=== PATIENT | male | born 1945 | race Asian ===

== ENCOUNTER 2017-03-23 03:48 | Emergency (ER) | payer OTHER ==
[~2017-03-23] VITALS: Ht 167.6 cm; Wt 91.8 kg
[2017-03-23 03:53] VITALS: Ht 167.6 cm; Wt 91.8 kg
--- NOTE | 2017-03-23 04:10 | EMERGENCY ROOM VISIT NOTE ---
History Report prepared by Maurice: Efren Escobar Under the Supervision of: Dr. Dina Brewster M.D. First contact with patient: 03:59 Chief Complaint: URINARY SYMPTOMS Stated Complaint: URINE RETENTION History of Present Illness The patient is a 71 year old male who presents to the Emergency Room with complaints of constant difficulty passing urine that began yesterday. The patient states he was working with his daughter in [employer]. He reports he was in the ED for urinary retention three weeks ago. The patient notes he had a catheter in place. He states it stopped draining the other day, so he tried to irrigate it. The patient reports he started having blood in his bag. He notes he removed the catheter yesterday by himself. The patient states he was able to pass urine twice, but it was a very weak stream. He reports he is flying back to [facility] later today. The patient notes he took two doses of 500mg of Cipro and 875mg of Augmentin x 2. He denies fevers and loss of bowel control. Source of History: patient Onset: yesterday Position: other (global) Quality: other (difficulty passing urine) Timing: constant Associated Symptoms: No fevers Note: Associated symptoms: blood in urine and week urine output Denies: loss of bowel control Review of Systems See HPI for pertinent positives & negatives. A total of 10 systems reviewed and were otherwise negative. Past Medical & Surgical Medical Problems: (1) Heart disease (2) HTN (hypertension) Family History Diabetes mellitus Gallbladder disease Heart disease Hypertension Kidney disease Kidney stones Social History Smoking Status: Never Smoker Alcohol Use: occasionally Marital Status: Housing Status: lives with family Occupation Status: employed Allergies Coded Allergies: No Known Allergies (Unverified , 03/23/17) Physical Exam Vital Signs Date Time Temp Pulse Resp B/P (MAP) Pulse Ox O2 Delivery O2 Flow Rate FiO2 03/23/17 04:47 36.5 90 18 145/78 95 03/23/17 03:53 36.4 102 18 171/94 94 Room Air Physical Exam Vital signs reviewed. General: Uncomfortable-appearing 71 year old male, in no significant distress. Pacing in the room. HEENT: No scleral icterus, PERRLA, neck supple. Atraumatic. Cardiovascular: Regular rate and rhythm, no extra sounds. Pulmonary: Clear to auscultation bilaterally, normal work of breathing. Abdomen: Soft, nontender, positive bowel sounds. Fullness to the suprapubic region. Musculoskeletal: Atraumatic, no peripheral edema. No CVA tenderness. Neurologic: Patient awake alert and oriented x 3 Skin: Warm, dry, no rash Medical Decision & Procedures Laboratory Results Test 03/23/17 04:30 Urine Color YELLOW Urine Appearance CLOUDY (CLEAR) Urine pH 7.0 (4.5-7.5) Urine Specific [place] 1.014 (1.000-1.030) Urine Protein NEG (NEG) Urine Glucose (UA) NEG (NEG) Urine Ketones NEG (NEG) Urine Occult Blood 3+ (NEG) Urine Nitrite NEG (NEG) Urine Bilirubin NEG (NEG) Urine Urobilinogen NEG (NEG) Urine Leukocyte Esterase SMALL (NEG) Urine WBC (Auto) 10-30 /hpf (0-5) Urine RBC (Auto) >30 /hpf (0-4) Urine Hyaline Casts (Auto) 1-5 /lpf (0-5) Urine Epithelial Cells (Auto) >30 /lpf (0-5) Urine Bacteria (Auto) NEG (NEG) Urine Yeast (Auto) (NONE PRSENT) Laboratory results per my review. ED Course 0401: Past medical records reviewed. The patient was evaluated in room A10. A complete history and physical examination was performed. 0415: Ordered Lidocaine HCl 10ml EXT - REFUSED 0441: Upon reevaluation, the patient appeared to have improvement of his symptoms. I discussed findings with him. The patient verbalized agreement of the treatment plan. He was discharged home. Medical Decision The patient is a 71 year old male who presents to the ED with complaints of decrease urinary output. Differentials include BPH, prostatitis, UTI, obstruction mass. This patient was evaluated and appeared to be in some discomfort. IV access was obtained and laboratory work was drawn. A Crow catheter was placed for approximately 1300 mL of urine. The patient had significant relief of his discomfort. A leg bag was applied. The patient has already initiated Cipro and Augmentin. He was advised to discontinue the Augmentin and continue Cipro. Patient will follow-up with his urologist upon return home. He will return to the ER for worsening of symptoms or any medical concerns. Impression Primary Impression: Urinary retention Scribe Attestation The scribe's documentation has been prepared under my direction and personally reviewed by me in its entirety. I confirm that the note above accurately reflects all work, treatment, procedures, and medical decision making performed by me. Departure Information Dispostion Home / Self-Care Referrals No Doctor, Assigned (PCP) Forms HOME CARE DOCUMENTATION FORM, IMPORTANT VISIT INFORMATION Patient Instructions ED Catheter Care [facility] Additional Instructions Diagnosis: Urinary retention Please leave catheter in place for 7 days. Continue cipro 500 mg twice daily for 7 days. Follow up with your urologist upon return home. Return to the ED for worsening of symptoms or any medical concerns.
[2017-03-23] MEDS ORDERED: LIDOCAINE HCL 2% JELLY 30 ML TUBE EXT ONE (04:15)
[2017-03-23 04:47] VITALS: BP 145/78; PULSE 90; TEMP 36.5; O2SAT 95
[2017-03-23 04:53] LABS: URINE APPEARANCE CLOUDY (CLEAR); URINE BILIRUBIN NEG (NEG); URINE COLOR YELLOW; URINE EPITHELIAL CELL AUTO >30 /lpf (0-5); URINE NITRITE NEG (NEG); URINE SPECIFIC GRAVITY 1.014 (1.000-1.030); UROBILINOGEN NEG (NEG); ZZURINE CULT IF INDIC CATH YES
[2017-03-23 04:56] LABS: MANUAL MICROSCOPIC REQUIRED? NO; REVIEW REQ? YES
--- NOTE | 2017-03-25 14:59 | Pharmacy Progress Note ---
ED Pharmacist Culture FollowUp Date of Service: Mar 25, 2017. Patient's urine cx (cath specimen) from 03/23/17 is growing CoN Staph 30,000CFU/ mL. The patient had presented w/ urinary retention after having removing his urinary catheter the previous day. He had no c/o fever or chills. No CVA tenderness noted on PE. No CBC was performed. Patient was discharged from ER with new cath and instructed to take Cipro 500mg PO BID x 7 days and stop the Augmentin he was already taken. He was to f/u with his urologist upon return from [facility]. The organism in the cx is resistant to Ciprofloxacin (verified with Zack in Micro). UA was suggestive of potential contamination (>30 epis). Given his lack of systemic symptoms, no fever and no c/o suprapubic tenderness or flank pain the cx may be reflective of contamination w/ skin mimi or colonization. I reviewed case w/ Dr Tam and the plan was to allow the patient to complete the current abx course however advise him to seek medical attention if he were to develop s/s of cath assoc UTI. I attempted to contact the patient w/ phone # provided: [phone] however this number was not in service. Will ask community service worker to send a letter to his address.
== END 2017-03-23 04:48 | disposition home or self-care (01) ==
LOC: C.EDB 03:50 → C.EDA 04:48
DX: R33.9 Retention of urine, unspecified (principal); I10 Essential (primary) hypertension; I51.9 Heart disease, unspecified